=== PATIENT | female | born 1985 | race Caucasian/White ===

== ENCOUNTER 2017-11-30 10:32 | Emergency (ER) | payer BC ==
[~2017-11-30] VITALS: Ht 180.3 cm; Wt 65.3 kg
[~2017-11-30 10:32] MED LIST: SYN.025 PO
[2017-11-30 10:35] VITALS: BP 140/58
--- NOTE | 2017-11-30 10:55 | NUR ---
PT TRIAGED, AMBULATED TO ER LOBBY WAITING FOR ER BED. ERMD AWARE OF PATIENT STATUS.
--- NOTE | 2017-11-30 11:09 | NUR ---
PATIENT TAKEN TO ER BED 11 VIA W/C
--- NOTE | 2017-11-30 11:12 | NUR ---
Frederick alford in ED - 11/30/17 at 1112 by [facility] PT TO BED 11.
[2017-11-30] MEDS ORDERED: HYDROmorphone 1 MG/ML AMP IVP ONE (11:20)
[2017-11-30] MEDS ORDERED: NACL 0.9% 1,000 ML IV ONE (11:25)
--- NOTE | 2017-11-30 11:26 | NUR ---
PATIENT C/O EPIGASTRIC PAIN 09/10 SINCE YESTERDAY WITH NO RELIEFE. VS STABLE. ALERT AND ORIENTED X4. MD NOTIFIED. CONTINUE TO MONITOR
[2017-11-30] MEDS ORDERED: HYDROmorphone PFS 2 MG/ML SYR ONE (11:42)
[2017-11-30 12:02] LABS: BASOPHILS # (AUTO) 0.2 K/uL (0.00-0.22); BASOPHILS % (AUTO) 1.1 % (0.0-2.0); EOSINOPHILS # (AUTO) 0.1 K/uL (0-0.4); EOSINOPHILS % (AUTO) 0.9 % (0.0-4.0); HEMATOCRIT 38.5 % (36-48); HEMOGLOBIN 12.9 g/dL (12.0-16.0); LYMPHOCYTES # (AUTO) 1.3 K/uL (2.5-16.5); LYMPHOCYTES % (AUTO) 8.7 % (20.5-51.1); MEAN CORPUSCULAR HEMOGLOBIN 32 pg (27-31); MEAN CORPUSCULAR HGB CONC 34 g/dL (33-37); MEAN CORPUSCULAR VOLUME 94 fL (80-94); MONOCYTES # (AUTO) 0.5 K/uL (0.8-1.0); MONOCYTES % (AUTO) 3.6 % (1.7-9.3); NEUTROPHILS # (AUTO) 12.8 K/uL (1.8-7.7); NEUTROPHILS % (AUTO) 85.7 % (42.2-75.2); PLATELET COUNT (AUTO) 312 K/uL (140-450); RED BLOOD CELL COUNT(AUTO) 4.08 MIL/uL (4.20-5.40); RED CELL DISTRIBUTION WIDTH 12.5 % (11.6-13.7); WHITE BLOOD COUNT (AUTO) 14.9 K/uL (4.8-10.8)
--- NOTE | 2017-11-30 12:05 | NUR ---
PATIENT IN BED RESTING IN POC. PAIN DECREASED TO 2/10 FROM 10/10 AFTER PAIN MANAGEMENT. NO DISTRESS. MD AWARE. CONTINUE TO MONITOR.
[2017-11-30 12:12] LABS: APPEARANCE,URINE CLEAR (CLEAR); BILIRUBIN,URINE NEGATIVE (NEGATIVE); BLOOD, URINE NEGATIVE (NEGATIVE); COLOR,URINE YELLOW (YELLOW); LEUKOCYTE ESTERASE ,URINE NEGATIVE (NEGATIVE); NITRITE, URINE NEGATIVE (NEGATIVE); PH,URINE 5.5 (5.0-9.0); UGLUCOSE NEGATIVE (NEGATIVE)
[2017-11-30 12:16] LABS: ANION GAP 17.4 (8-16); CARBON DIOXIDE 24.1 mmol/L (21-32); CREATININE 0.9 mg/dL (0.6-1.3); POTASSIUM 3.5 mmol/L (3.5-5.1)
[2017-11-30 12:22] LABS: ALBUMIN 4.5 g/dL (3.4-5.0); TOTAL BILIRUBIN 1.1 mg/dL (0.0-1.0)
--- NOTE | 2017-11-30 12:59 | NUR ---
PATIENT RESTING COMFORTABLY. FAMILY AT BEDSIDE. A&OX4. PAIN 01/11. CONTINTUE TO MONITOR.
[2017-11-30 13:39] VITALS: BP 105/56
--- NOTE | 2017-11-30 13:40 | NUR ---
Patient discharged with v/s stable. PT PAIN CONTROLLED REDUCED TO 2/10 UPON LEAVING FROM 10/10. HR REMAINS JOSH BUT PERFUSION IS POSITIVE THROUGHOUT. A&OX4. Written and verbal after care instructions given and explained. Patient alert, oriented and verbalized understanding of instructions. Ambulatory with steady gait. All questions addressed prior to discharge. ID band removed. Patient advised to follow up with PMD. Rx of NORCO given. Patient educated on indication of medication including possible reaction and side effects. Opportunity to ask questions provided and answered.
== END 2017-11-30 13:40 | disposition home or self-care (01) ==
LOC: MED 10:32
DX: K29.70 Gastritis, unspecified, without bleeding (principal); Z79.899 Other long term (current) drug therapy; Z88.8 Allergy status to other drugs, medicaments and biological substances; Z88.5 Allergy status to narcotic agent; Z91.040 Latex allergy status; Z91.010 Allergy to peanuts
CPT/HCPCS: 36415; 80053; 81003; 82150; 83690; 84703; 85025; 96361; 96374; 99284; J1170; J7030